=== PATIENT | male | born 1995 | race Caucasian/White ===

== ENCOUNTER 2019-07-02 08:24 | Emergency (ER) | payer BC ==
[2019-07-02 08:32] VITALS: BP 125/79; PULSE 68
--- NOTE | 2019-07-02 08:55 | EDM.PDOC ---
ED HPI GENERAL MEDICAL PROBLEM - General Chief Complaint: Skin Complaint Stated Complaint: RASH Time Seen by Provider: 07/02/19 08:39 Source of Information: Reports: Patient History Limitations: Reports: No Limitations - History of Present Illness INITIAL COMMENTS - FREE TEXT/NARRATIVE: HISTORY AND PHYSICAL: History of present illness: Patient is a 23-year-old male presents to the ED with complaint of rash. He states he has had a rash for the past 10 days. He states it started as a pink rash and has turned brown. He states it will turn pink/red in the shower. He states it siddiqui but is not itchy. He also notes having a cold recently. States he's had a runny nose and ear pain. He denies fevers, chills, nausea, vomiting, cough, shortness of breath. Denies new soaps, detergents, medications etc. Review of systems: As per history of present illness and below otherwise all systems reviewed and negative. Past medical history: As per history of present illness and as reviewed below otherwise noncontributory. Surgical history: As per history of present illness and as reviewed below otherwise noncontributory. Social history: No reported history of drug or alcohol abuse. Family history: As per history of present illness and as reviewed below otherwise noncontributory. Physical exam: General: Patient sitting comfortably in no acute distress and nontoxic appearing HEENT: Left TM is erythematous and bulging with loss of light reflex. Atraumatic , normocephalic, pupils reactive, negative for conjunctival pallor or scleral icterus, mucous membranes moist, throat clear, neck supple, nontender, trachea midline. No meningeal signs. Lungs: Clear to auscultation, breath sounds equal bilaterally, chest nontender. Heart: S1S2, regular, negative for clicks, rubs, or overt murmur. Abdomen: Soft, nondistended, nontender. Negative for masses or hepatosplenomegaly. Negative for costovertebral tenderness. No rigidity, rebound , guarding. Pelvis: Stable nontender. Genitourinary: Deferred. Rectal: Deferred. Skin: there are brown macules ranging from 3mm to 1cm on the arms and trunk. Extremities: Atraumatic, negative for cords or calf pain. Neurovascular unremarkable. Neuro: Awake, alert, oriented. Cranial nerves II through XII unremarkable. Cerebellum unremarkable. Motor and sensory unremarkable throughout. Exam nonfocal. Notes: Diagnostics: [] Therapeutics: [] Prescriptions: Augmentin Medrol dosepak Impression: Rash, Left otitis media Plan: Take medication as instructed Follow up with primary care provider Return to ED as needed as discussed Definitive disposition and diagnosis as appropriate pending reevaluation and review of above. rash Pain Score (Numeric/FACES): 9 - Related Data Allergies Allergy/AdvReac Type Severity Reaction Status Date / Time bee sting Allergy Anaphylactic Uncoded 07/02/19 08:32 Shock Home Meds: Home Meds ARIPiprazole [Abilify] 10 mg PO DAILY 07/02/19 [History] Amoxicillin/Potassium Clav [Augmentin 875-125 Tablet] 1 each PO BID 7 Days #14 tablet 07/02/19 [Rx] methylPREDNISolone [Medrol] 4 mg PO ASDIRECTED #1 tab.ds.pk 07/02/19 [Rx] Past Medical History - Past Health History Medical/Surgical History: Denies Medical/Surgical History HEENT History: Reports: None Cardiovascular History: Reports: None Respiratory History: Reports: None Gastrointestinal History: Reports: None Genitourinary History: Reports: None Musculoskeletal History: Reports: None Neurological History: Reports: None Psychiatric History: Reports: Bipolar, Depression Endocrine/Metabolic History: Reports: None Hematologic History: Reports: None Immunologic History: Reports: None Oncologic (Cancer) History: Reports: None Dermatologic History: Reports: None - Infectious Disease History Infectious Disease History: Reports: Chicken Pox - Past Surgical History Head Surgeries/Procedures: Reports: None HEENT Surgical History: Reports: None Cardiovascular Surgical History: Reports: None Respiratory Surgical History: Reports: None GI Surgical History: Reports: None Male Surgical History: Reports: None Endocrine Surgical History: Reports: None Neurological Surgical History: Reports: None Musculoskeletal Surgical History: Reports: Other (See Below) Other Musculoskeletal Surgeries/Procedures:: left arm Social & Family History - Family History Family Medical History: Noncontributory Cardiac: Reports: Other (See Below) Other Cardiac Family History: heart problem - Tobacco Use Smoking Status *Q: Current Every Day Smoker Years of Tobacco use: 6 Packs/Tins Daily: 0.2 - Caffeine Use Caffeine Use: Reports: Coffee, Energy Drinks, Soda, Tea - Recreational Drug Use Recreational Drug Use: Yes Drug Use in Last 12 Months: Yes Recreational Drug Type: Reports: Marijuana/Hashish Recreational Drug Use Frequency: Not Used In Over 6 Months ED ROS GENERAL - Review of Systems Review Of Systems: ROS reveals no pertinent complaints other than HPI. ED EXAM, SKIN/RASH Exam: See Below (see dictation) Course - Vital Signs Last Recorded V/S: Last Vital Signs Temp 96.6 F 07/02/19 08:30 Pulse 68 07/02/19 08:30 Resp 18 07/02/19 08:30 BP 125/79 07/02/19 08:30 Pulse Ox 96 07/02/19 08:30 Departure - Departure Time of Disposition: 08:40 Disposition: Home, Self-Care 01 Condition: Good Clinical Impression: Rash, Left otitis media - Discharge Information Referrals: Med Ch MD [Primary Care Provider] - Additional Instructions: The following information is given to patients seen in the emergency department who are being discharged to home. This information is to outline your options for follow-up care. We provide all patients seen in our emergency department with a follow-up referral. The need for follow-up, as well as the timing and circumstances, are variable depending upon the specifics of your emergency department visit. If you don't have a primary care physician on staff, we will provide you with a referral. We always advise you to contact your personal physician following an emergency department visit to inform them of the circumstance of the visit and for follow-up with them and/or the need for any referrals to a consulting specialist. The emergency department will also refer you to a specialist when appropriate. This referral assures that you have the opportunity for follow-up care with a specialist. All of these measure are taken in an effort to provide you with optimal care, which includes your follow-up. Under all circumstances we always encourage you to contact your private physician who remains a resource for coordinating your care. When calling for follow-up care, please make the office aware that this follow-up is from your recent emergency room visit. If for any reason you are refused follow-up, please contact the Emergency Department at and asked to speak to the emergency department charge nurse. Primary Care [address] [place] [id number] [facility] [address] [place] [id number] Take medication as instructed Follow up with primary care provider Return to ED as needed as discussed
== END 2019-07-02 08:49 | disposition home or self-care (01) ==
LOC: MW.ED 08:24
DX: H66.92 Otitis media, unspecified, left ear (principal); R21 Rash and other nonspecific skin eruption; F32.9 Major depressive disorder, single episode, unspecified; F17.210 Nicotine dependence, cigarettes, uncomplicated; Z91.030 Bee allergy status; Z79.899 Other long term (current) drug therapy
CPT/HCPCS: 99282

== ENCOUNTER 2021-11-17 11:17 | Emergency (ER) | payer BC ==
[2021-11-17] MEDS ORDERED: Sodium Chloride 0.9% 1,000 ML IV ONE (11:33)
[2021-11-17] MEDS ORDERED: Ketorolac 30 MG/ML SDV IVPUSH ONE (11:33)
[2021-11-17] MEDS ORDERED: Ondansetron 4 MG/2 ML SDV IVPUSH ONE (11:33)
[2021-11-17 12:33] LABS: BLOOD UREA NITROGEN,BUN 15 mg/dL (7.0-18.0); CARBON DIOXIDE,CO2 21.3 mmol/L (21.0-32.0); CHLORIDE,CL 106 mmol/L (98-107); GLUCOSE RANDOM 100 mg/dL (74-106); LIPASE 51 U/L (73-393); SODIUM,NA 141 mmol/L (136-148)
[2021-11-17 13:45] VITALS: BP 127/59; PULSE 64
== END 2021-11-17 13:40 | disposition home or self-care (01) ==
LOC: MW.ED 11:17
DX: B34.9 Viral infection, unspecified (principal); E86.0 Dehydration; Z91.030 Bee allergy status; Z86.16 Personal history of COVID-19
CPT/HCPCS: 36415; 80053; 81003; 83690; 85025; 96374; 96375; 99284; J1885; J2405; J7030

== ENCOUNTER 2022-05-30 17:48 | Emergency (ER) | payer BC ==
[2022-05-30 19:07] LABS: CARBON DIOXIDE,CO2 25.3 mmol/L (21.0-32.0); POTASSIUM,K 3.7 mmol/L (3.5-5.1)
[2022-05-30 20:15] VITALS: BP 116/80; PULSE 85
== END 2022-05-30 20:14 | disposition home or self-care (01) ==
LOC: MW.ED 17:48
DX: R05.1 Acute cough (principal); R06.02 Shortness of breath; J02.9 Acute pharyngitis, unspecified; Z20.822 Contact with and (suspected) exposure to COVID-19; Z91.041 Radiographic dye allergy status; Z79.899 Other long term (current) drug therapy
CPT/HCPCS: 36415; 71046; 71046-26; 80053; 85025; 87651-QW; 93005; 93010; 99284; U0002

== ENCOUNTER 2022-06-23 12:11 | Emergency (ER) | payer BC ==
[2022-06-23] MEDS ORDERED: methylPREDNISolone Sodium Succinate 125 MG/2 ML SDV IVPUSH ONE (12:16)
[2022-06-23] MEDS ORDERED: Famotidine 20 MG/2 ML SDV IVPUSH ONE (12:16)
[2022-06-23] MEDS ORDERED: diphenhydrAMINE 50 MG/ML SDV IVPUSH ONE (12:16)
[2022-06-23] MEDS ORDERED: EPINEPHrine 1 MG/ML SDV IM ONE (12:17)
[2022-06-23] MEDS ORDERED: EPINEPHrine 1 MG/1 ML Amp ONE (12:18)
[2022-06-23 15:05] VITALS: BP 133/61; PULSE 74
== END 2022-06-23 16:00 | disposition left against medical advice (07) ==
LOC: MW.ED 12:11
DX: T63.441A Toxic effect of venom of bees, accidental (unintentional), initial encounter (principal); Z91.030 Bee allergy status; Z86.16 Personal history of COVID-19
CPT/HCPCS: 96372; 96374; 96375; 99283; J0171; J1200; J2930; J3490; 99284

== ENCOUNTER 2023-03-05 08:39 | Emergency (ER) | payer BC ==
[2023-03-05] MEDS ORDERED: Ketorolac 60 MG/2 ML SDV IM ONE (11:31)
[2023-03-05 14:19] VITALS: BP 126/71; PULSE 57
== END 2023-03-05 14:18 | disposition home or self-care (01) ==
LOC: MW.ED 08:39
DX: M54.50 Low back pain, unspecified (principal); R10.2 Pelvic and perineal pain; F17.210 Nicotine dependence, cigarettes, uncomplicated; Z86.16 Personal history of COVID-19; Z91.030 Bee allergy status; Z79.899 Other long term (current) drug therapy
CPT/HCPCS: 72100; 72131; 72170; 72192; 96372; 99284; J1885; 99283

== ENCOUNTER 2023-03-29 01:57 | Emergency (ER) | payer BC | END 2023-03-29 02:54 | disposition left against medical advice (07) | LOC: MW.ED 01:57 | DX: Z53.21 Procedure and treatment not carried out due to patient leaving prior to being seen by health care provider (principal) ==